=== PATIENT | male | born 2000 | race African-American/Black ===

== ENCOUNTER 2023-09-19 13:26 | Outpatient (CLI) | payer OTHER | END 2023-09-19 13:27 | disposition home or self-care (01) | LOC: CSHWCC 13:26 | PROVIDERS: ATTEND Nurse Practitioner Family | DX: L97.212 Non-pressure chronic ulcer of right calf with fat layer exposed (principal) | CPT/HCPCS: 11042; 99204; G0463 ==

== ENCOUNTER 2023-09-24 08:45 | Outpatient (CLI) | payer OTHER | END 2023-09-24 08:46 | disposition home or self-care (01) | LOC: CSHWCC 08:45 | PROVIDERS: ATTEND Nurse Practitioner Family | DX: L97.212 Non-pressure chronic ulcer of right calf with fat layer exposed (principal) | CPT/HCPCS: 11042 ==

== ENCOUNTER 2023-11-22 14:25 | Outpatient (CLI) | payer OTHER | END 2023-11-22 14:26 | disposition home or self-care (01) | LOC: CSHWCC 14:25 | PROVIDERS: ATTEND Nurse Practitioner Family | DX: L97.212 Non-pressure chronic ulcer of right calf with fat layer exposed (principal) | CPT/HCPCS: 11042 ==

== ENCOUNTER 2023-11-29 13:12 | Outpatient (CLI) | payer OTHER | END 2023-11-29 13:13 | disposition home or self-care (01) | LOC: CSHWCC 13:12 | PROVIDERS: ATTEND Nurse Practitioner Family | DX: L97.212 Non-pressure chronic ulcer of right calf with fat layer exposed (principal) | CPT/HCPCS: 99213; G0463 ==